=== PATIENT | female | born 1960 | race Caucasian/White ===

== ENCOUNTER → 2023-06-13 06:39 | Outpatient (REF) | payer OTHER, SELFPAY | LOC: HWWDC 06:39 | PROVIDERS: ATTENDING PHYSICIAN Physician Assistant Medical | DX: Z12.31 Encounter for screening mammogram for malignant neoplasm of breast (principal) | CPT/HCPCS: 77063; 77067 ==

== ENCOUNTER → 2025-01-11 19:21 | Outpatient (REF) | payer OTHER, SELFPAY | LOC: WDC 19:21 | PROVIDERS: ATTENDING PHYSICIAN Physician Assistant | DX: Z12.31 Encounter for screening mammogram for malignant neoplasm of breast (principal) | CPT/HCPCS: 77063; 77067 ==